=== PATIENT | female | born 1960 | race Caucasian/White ===

== ENCOUNTER → 2022-04-05 01:59 | Outpatient (CLI) | payer MEDICAID, SELFPAY ==
--- NOTE | 2022-04-05 07:30 | DI.US_ITS ---
Exam(s) US ABDOMEN EXAM: US ABDOMEN CLINICAL HISTORY: workup for transaminitis, intrahepatic bile duct dilation, hx cholecyst TECHNIQUE: Ultrasound of complete upper abdomen performed using standard protocol. COMPARISON: No exams were available for comparison FINDINGS: There is no ascites evident. LIVER: There are no hepatic lesions evident nor obvious dilatation of intrahepatic ducts. Liver is s omewhat hyperechoic indicating steatosis. GALLBLADDER/BILIARY: The gallbladder surgically absent. The common hepatic duct isslightly dilated, measuring 8mm at the level of jovanna hepatis. No obvious calculus seen within the CBD. PANCREAS: There is no evidence of pancreatic mass nor dilatation of the pancreatic duct. SPLEEN: The spleen is not enlarged and there are no intrasplenic lesions evident. KIDNEYS:Kidneys exhibit normal size with no evidence of solid mass, calculus, nor hydronephrosis. No cortical cysts evident. ABDOMINAL AORTA: There is no evidence of abdominal aortic aneurysm. IVC: Normal diameter where visualized. IMPRESSION: 1. The gallbladder surgically absent. Common hepatic duct is mildly dilated, measuring 8 millimeter s. This is possibly just related to the post cholecystectomy status but correlation with appropriate blood work recommended. 2. Hepatic steatosis. However, no discrete focal hepatic lesions identified. 3. No other significant ultrasound findings in the upper abdomen and there is no ascites evident. DATA REPOSITORY:
== END ==
PROVIDERS: PCP Physician Assistant Medical; Visit Provider Surgery
DX: K83.8 Other specified diseases of biliary tract (principal); K76.0 Fatty (change of) liver, not elsewhere classified; R74.01 Elevation of levels of liver transaminase levels; Z90.49 Acquired absence of other specified parts of digestive tract
CPT/HCPCS: 76700

== ENCOUNTER 2022-04-26 08:57 | Day surgery (SDC) | payer MEDICAID, SELFPAY ==
--- NOTE | 2022-04-26 06:48 | W.PM.ENDDOP ---
Date of service: 04/26/22 Time of Service: 11:20 Endoscopy Report DATE OF PROCEDURE: 04/26/22 PRE-OP DIAGNOSIS: Abdominal pain POST-OP DIAGNOSIS: other (gastritis, reflux and Hiatal hernia) PROCEDURE: EGD with biopsies SURGEON: Jes Schulte ANESTHESIA TYPE: General:No Airway ESTIMATED BLOOD LOSS: 3 PATHOLOGY: other (antrum, body and GE junction bx's) COMPLICATIONS: None DISPOSITION: same day INDICATIONS: Rosalie unfortunately continues with nausea, abdominal pain and fullness.? She has not lost any weight at this time.? I reviewed the ultrasound findings with her.? I recommend proceeding with an upper endoscopy and checking for H. pylori infection as well as ulcers.? If this is normal then I will refer her to gastroenterology either at [facility] or [facility].? We discussed the risks and benefits and alternatives to an upper endoscopy.? I also offered for referral to GI now and they can do the upper endoscopy as they feel it is needed.? Rosalie would like to start here with an upper endoscopy and then go from there.? Risks, benefits and complications have been reviewed. Complications include but are not limited to bleeding, pain, perforation, sore throat, aspiration, and adverse reaction to the medications.? Questions were entertained and answered to their satisfaction and they wished to proceed. No guarantees were given or implied. PREP: Miralax/Dulcolax FINDINGS: Moderate to severe gastritis Evidence of mild reflux Small Hiatal Hernia PROCEDURE DESCRIPTION: After informed consent was obtained the patient was take to the procedure room and placed in a supine position. Monitors were applied and a time out was done. The patients name, date of , procedure type, allergies to medications and metal in their body was reviewed. A bite block was placed and the patient was sedated. Once sedated and comfortable the gastroscope was advanced through the oropharynx which was grossly normal into the esophagus. The proximal and mid-esophagus were normal. In the distal esophagus there was evidence of reflux noted. The scope was advanced into the stomach and through the pylorus into the 3rd portion of the duodenum. The duodenum was noted to be normal. The scope was retracted back into the stomach. There was moderate to severe inflammation noted. Biopsies were done to rule out H. pylori. There were no ulcers. The scope was retroflexed. The cardia and fundus were noted to be normal. There was asmall hiatal hernia noted. The scope was retracted back into the esophagus and biopsies were done of the GE junction to rule out Cross's. The Z line was regular. The GE junction was at32 cm. The scope was removed and the patient was woken up and taken back to [facility] in stable condition.
--- NOTE | 2022-04-26 06:49 | PDOC.DSDIS_ITS ---
Discharge Plan Disposition Patient Disposition: HOME Condition: Good Discharge Details Reason For Visit: EGD Attending Provider: Jes Schulte Primary Care Provider: Katy Marrero Home Meds and New Rx's Prescriptions: New omeprazole 40 mg capsule,delayed release(DR/EC) 40 mg PO BID Qty: 60 0RF Continued prochlorperazine maleate [Compazine] 5 mg tablet 5 mg PO BID PRN Calcium 650mg-Vitamin D3 12.5mcg-Vitamin K 40mcg 1 tab PO DAILY celecoxib [Celebrex] 200 mg Capsule 400 mg PO DAILY Saccharomyces boulardii [Florastor] 250 mg Capsule 250 mg PO DAILY magnesium oxide 400 mg magnesium Tablet 400 mg PO BID baclofen 20 mg tablet 20 mg PO BID cyanocobalamin (vitamin B-12) 2,500 mcg tablet 2,500 mcg PO DAILY levothyroxine 50 mcg capsule 50 mcg PO DAILY lorazepam 0.5 mg tablet 0.5 mg PO BID morphine 15 mg tablet 15 mg PO Q4H PRN Rx Instructions: take 1 tablet by mouth 5 times per day cholecalciferol (vitamin D3) 50 mcg (2,000 unit) capsule 50 mcg PO DAILY ondansetron HCl 8 mg tablet 8 mg PO Q12H fentanyl 12 mcg/hr Patch 72 Hour 12 mcg topical DIRECTED lisinopril 10 mg Tablet 10 mg PO DAILY Discontinued omeprazole 20 mg Tablet,Delayed Release (Dr/Ec) 20 mg PO DAILY Discharge Instructions Instructions: Diet for Stomach Ulcers and Gastritis (ED), Gastritis (DC), GERD (Gastroesophageal Reflux Disease) (DC) Additional Instructions: Findings:Inflammation of the stomach Inflammation of esophagus medications: Please warehouse order picker a new Rx for Omeprazole 40 mg 2 x a day Follow up: 2 weeks Please call if you develop: fevers >101.5 Nausea or Vomiting Abdominal pain that is not transient Rectal bleeding that is more then a tbsp A hard abdomen and inability to pass gas DAY SURGERY UNIT POST ENDOSCOPY INSTRUCTIONS Instructions for everyone who is given Anesthesia: For your safety, please do the following for the next 24 Hours: a. Do not drive or operate dangerous equipment b. Do not drink alcohol beverages or use any recreational drugs for the first 24 hours or while taking pain medications. The medications in your body may have a reaction that can be dangerous. c. Do not make any important decisions or sign any important papers 1. Generally there are no restrictions on your activity after a day or so has gone by, but you may feel a bit fatigued for a few days. 2. After you arrive home you may have a light meal and return to a normal diet as you can tolerate it without feeling sick to your stomach. 3. After surgery, you may feel pain or discomfort. This should be only transient, but if it persists please contact your doctor. 4. If there are any questions regarding the findings of your procedure, please feel free to contact your doctor. 6. If you are unable to contact your doctor with a problem, contact the hospital at [phone]. 7. Continue all your regular medications unless directed otherwise. I understand the above instructions and have no questions. Signature of Patient or Responsible Adult Escort Date/Time Name of Responsible Adult Escort Signature of Nurse Date/Time Activity:: Activity as Tolerated Diet:: low acid diet Discharge Orders Discharge Orders: Discharge Order (Routine); Ordered 04/26/22 Ordered By: Jes Schulte
--- NOTE | 2022-04-26 07:08 | ANES.PREOP_ITS ---
General Info Date of Service Date Performed: 04/26/22 Height: 5 ft 3 in Weight: 53.751 kg Body Mass Index (BMI): 20.9 Surgical Procedure: Operation Date: 04/26/22 11:05 Proposed Procedure Side Surgeon p Gastroscopy Jes Schulte MD Meds Allergies and Home Medications Allergies Allergy/AdvReac Type Severity Reaction Status Date / Time cefaclor Allergy Severe Serum Verified 04/26/22 09:36 Sickness venlafaxine [From Effexor] Allergy Severe Seizure Verified 04/26/22 09:36 codeine Allergy Intermediate Hives Verified 04/26/22 09:36 hydrocodone Allergy Intermediate Hives Verified 04/26/22 09:36 metronidazole [From Flagyl] Allergy Intermediate Hives Verified 04/26/22 09:36 teriparatide [From Forteo] Allergy Intermediate muscle Verified 04/26/22 09:36 cramps denosumab [From Prolia] Allergy Mild Skin Rash Verified 04/26/22 09:36 doxycycline Allergy Unknown Hives Verified 04/26/22 09:36 abaloparatide [From Tymlos] AdvReac Intermediate Verified 04/26/22 09:36 ketamine AdvReac Intermediate Verified 04/26/22 09:36 Home Medication Medication Instructions Recorded Calcium 650mg-Vitamin D3 1 tab PO DAILY 05/17/20 12.5mcg-Vitamin K 40mcg Saccharomyces boulardii 250 mg 250 mg PO DAILY 05/17/20 capsule (Florastor) celecoxib 200 mg capsule (Celebrex) 400 mg PO DAILY 05/17/20 magnesium oxide 400 mg PO BID 05/17/20 omeprazole 20 mg tablet,delayed 20 mg PO DAILY 05/17/20 release baclofen 20 mg tablet 20 mg PO BID 10/25/21 cyanocobalamin (vitamin B-12) 2,500 mcg PO DAILY 10/25/21 2,500 mcg tablet levothyroxine 50 mcg capsule 50 mcg PO DAILY 10/25/21 lorazepam 0.5 mg tablet 0.5 mg PO BID 10/25/21 morphine 15 mg immediate release 15 mg PO Q4H PRN 10/25/21 tablet cholecalciferol (vitamin D3) 50 50 mcg PO DAILY 03/21/22 mcg (2,000 unit) capsule ondansetron HCl 8 mg tablet 8 mg PO Q12H 03/21/22 prochlorperazine maleate 5 mg 5 mg PO BID PRN 03/28/22 tablet (Compazine) fentanyl 12 mcg/hr transdermal 12 mcg topical DIRECTED 04/25/22 patch lisinopril 10 mg tablet 10 mg PO DAILY 04/26/22 Current Visit Medications: Current Medications Generic Name Dose Route Start Last Admin Trade Name Dickq PRN Reason Stop Dose Admin Hyoscyamine Sulfate 0.125 mg 04/26/22 06:50 Hyoscyamine 0.125 Mg Sl/Oral/Chew SL DIRECTED PRN Ringer's Solution 1,000 mls @ 80 mls/hr 04/26/22 06:00 IV 04/26/22 23:59 INFUSION [facility] IV Miscellaneous Supplies 1 each 04/26/22 06:00 Iv Access IV 04/26/22 23:59 DIRECTED [facility] Ondansetron HCl 4 mg 04/26/22 06:50 Ondansetron 4 Mg/2 Ml Vial IVP Q4H PRN PRN Nausea / Vomiting Sodium Chloride 0 ml 04/26/22 06:00 Normal Saline Flush 10 Ml Syr IV 04/26/22 23:59 PRN PRN Sodium Chloride 0 ml 04/26/22 06:00 Normal Saline 10 Ml Vial IJ 04/26/22 23:59 DIRECTED PRN Sterile Water 0 ml 04/26/22 06:00 Water,Injection,Sterile 10 Ml Vial IJ 04/26/22 23:59 DIRECTED PRN PFSH Active Problems Active Problems: Problem Status Onset Code Nausea R11.0 Abdominal pain R10.9 Trochanteric bursitis of left hip M70.62 Arthritis of left hip M16.12 Physical deconditioning R53.81 Osteoporosis M81.0 Transaminitis R74.01 Intrahepatic bile duct dilation K83.8 Hypertension I10 Medical History Medical History Cyclical vomiting syndrome Degenerative joint disease involving multiple joints Depressive disorder Diverticular disease of colon Fracture of sacrum Gastritis GERD (gastroesophageal reflux disease) H/O anorexia nervosa Hip pain History of spinal fracture thoracic 9-12 lumbar 1-2 and S2 and left hip fracture Hyperlipidemia Hypertensive disorder Hypothyroid Impairment of balance Insomnia Leukopenia Muscle weakness Polyneuropathy Thoracic back pain Unintentional weight loss Surgical History Surgical History History of appendectomy History of cholecystectomy History of hysterectomy Tobacco Smoking/Tobacco Use Status: Never Alcohol Alcohol Intake: current Alcohol intake frequency: 0-2 drinks per day Alcohol type: wine Substance Use Substance use: Never Substance use type: does not use Vital Signs and Lab Results Lab Results Blood Type / Crossmatch: No Data to Display Complete Blood Count: No Data to Display Complete Metabolic Panel: No Data to Display Liver Function Panel: No Data to Display Coagulation Panel: No Data to Display Cardiac Panel: No Data to Display Arterial Blood Gas: No Data to Display Venous Blood Gas: No Data to Display Pancreas Panel: No Data to Display Thyroid Panel: No Data to Display Infectious Disease: No Data to Display Blood Cultures: No Data to Display Toxicology Panel: No Data to Display Anesthesia Assessment and Plan Anesthesia History Personal History: PONV Family History: No Family History of Anesthesia Complications Exercise Tolerance Exercise Tolerance: Metabolic Equivalents>4 Pertinent Negatives Pertinent Negatives: No Symptoms of GERD, No Major Cardiovascular Symptoms or Complaints, No Major Pulmonary Symptoms or Complaints and No History of CVA/TIA Cardiac & Pulmonary Exam Cardiac Exam: Normal S1/S2 Heart Sounds Pulmonary Exam: Clear Bilateral Breath Sounds Implantable Cardiac Device Does patient have a Pacemaker or an ICD?: No Airway Exam Known Difficult Airway: No Mallampati Class: 1 Mouth Opening: Normal (> 3cm) Thyromental Distance: Greater than 3 cm Neck Range of Motion: Full ROM Neck Circumference: Normal Teeth Condition: Normal Dentition and Loose or Chipped ASA Classification ASA Score: ASA 2 Emergency Case?: No NPO Status NPO Status: NPO Clears >2 hours, Solids >8 hours Anesthesia Plan Resuscitation Status: Full Code Anesthesia Technique: General Anesthesia Airway Planned: Natural Airway Monitors Used: Standard Monitors
[2022-04-26 09:42] VITALS: BP 137/86; PULSE 80; RESP 15; TEMP 37.1; O2SAT 98
[2022-04-26] MEDS: Lactated Ringers 1,000 ML 80 ML IV (10:20)
[2022-04-26 10:48] VITALS: BMI 20.9
--- NOTE | 2022-04-26 11:05 | STOM_PTH ---
PATIENT: Rosalie Gamboa LOC: [facility] U#:[id number] AGE/SX: 61/F ROOM: RE04/26/[address]: Jes Schulte MD : [id number] BED: DIS: 04/26/2022 SPEC #: [id number] RECD: 04/26/22 13:01 STATUS: [facility] #: [id number] MITCH: 04/26/22 11:[address]: Jes Schulte DEPT: Surgical Specimen RECD BY: Corie Brown ENTERED: 04/26/22 13:03 SP TYPE: STOMACH OTHR DR: Katy Marrero Tissues: 1 - STOMACH BIOPSY 2 - ESOPHAGUS BIOPSY 3 - ESOPHAGUS BIOPSY Procedures: GROSS AND MICRO LEVEL 4 Comments: [id number]
[2022-04-26 11:18] VITALS: BP 113/78; PULSE 77; RESP 16; TEMP 36.7; O2SAT 98
[2022-04-26] MEDS: Ondansetron 4 MG/2 ML VIAL IVP (11:28)
[2022-04-26 11:33] VITALS: BP 127/72; PULSE 66; RESP 18; TEMP 36.4; O2SAT 96
--- NOTE | 2022-04-26 12:24 | W.ANESPOSTOP ---
Postoperative Evaluation Date, Time and Location Date Performed: 04/26/22 Time Performed: 12:24 Patient Location: Day Surgery Unit Vital Signs Most Recent Imported Vital Signs: Most Recent Vital Signs Temp Pulse Resp BP Pulse Ox 36.4 C L 66 18 127/72 96 04/26/22 11:33 04/26/22 11:33 04/26/22 11:33 04/26/22 11:33 04/26/22 11:33 Pain Score Most Recent Pain Score: Most Recent Pain Score Pain Level 8 04/26/22 09:42 Assessment Mental Status: Awake (Alert & Oriented to Patient Baseline) Airway and Respiratory Function: Patent airway with normal (patient baseline) respiratory exam Cardiovascular Function: Hemodynamically Stable Hydration Status: Adequately Hydrated Nausea & Vomiting: No Nausea or Vomiting Pain: Pt. Denies Any Pain Peripheral Nerve Block: Patient did not receive a nerve block
== END 2022-04-26 13:10 | disposition home or self-care (01) ==
PROVIDERS: PCP Physician Assistant Medical; Visit Provider Surgery
PROC: 0DJ68ZZ Inspection of Stomach, Via Natural or Artificial Opening Endoscopic (ICD-10-PCS; CPT 43235; principal; 2022-04-26 11:00)
DX: K21.9 Gastro-esophageal reflux disease without esophagitis (principal); K29.70 Gastritis, unspecified, without bleeding; K44.9 Diaphragmatic hernia without obstruction or gangrene; K22.89 Other specified disease of esophagus
CPT/HCPCS: 43239; 88305; J2405

== ENCOUNTER 2023-02-09 00:50 | Outpatient (CLI) | payer MEDICARE, MEDICAID, SELFPAY ==
--- NOTE | 2023-02-09 08:00 | DI.MRI_ITS ---
Exam(s) MR LUMBAR SPINE WO EXAM: MR LUMBAR SPINE WO CLINICAL HISTORY: LBP with peripheral neuropathy. Spinal stenosis?, RADICULOPATHY,. TECHNIQUE: Multiplanar multisequence MRI of the Lumbar spine was performed. COMPARISON: MR MR PELVIS W/WO CONTRAST from 06/08/2021 CR XR LS SPINE 2-3 VIEWS from 10/04/2021 BM BM BMD DXA AXIAL W/HIPSPINE (D) from 01/27/2022 FINDINGS: Bones: The last intervertebral disc space is designated the L5/S1 level for the numbering purpose of this examination. Stable compression fracture of T12. Stable occluded is of the superior endplates of L2 and L3. No acute fractures. Alignment is satisfactory. The marrow signal characteristics are unremarkable. Cord: The conus tip ends at the T12 L1 level. It is of normal size and signal intensity. T12-L1: No disc herniations or bulges are present. No central spinal canal or neural foraminal stenos is. L1-2: No disc herniations or bulges are present. No central spinal canal or neural foraminal stenosis . L2-3: No disc herniations or bulges are present. No central spinal canal or neural foraminal stenosis . L3-4: Small endplate osteophytes. Mild facet degenerative changes and ligamentous hypertrophy. No d isc herniations or bulges are present. No central spinal canal or neural foraminal stenosis. L4-5: Minimal disc bulging. Mild facet degenerative changes and ligamentous hypertrophy. Mild bilat eral neural foraminal narrowing. No central canal stenosis. L5-S1: No disc herniations or bulges are present. Mild facet degenerative changes. No central spina l canal or neural foraminal stenosis. The visualized SI joints and sacrum are well maintained. Soft tissues: The paraspinal soft tissues are unremarkable. IMPRESSION: No evidence disc herniation. No evidence of central spinal canal stenosis. Facet degenerative garcia es cause mild bilateral neural foraminal narrowing at L4-5.. Stable compression fractures. DATA REPOSITORY:
== END 2023-02-09 01:10 ==
PROVIDERS: PCP Physician Assistant Medical; Visit Provider Preventive Medicine Occupational Medicine
DX: S22.080D Wedge compression fracture of T11-T12 vertebra, subsequent encounter for fracture with routine healing (principal); M48.061 Spinal stenosis, lumbar region without neurogenic claudication; X58.XXXA Exposure to other specified factors, initial encounter
CPT/HCPCS: 72148

== ENCOUNTER → 2023-08-01 08:39 | Outpatient (BNVA) | payer MEDICARE, MEDICAID, SELFPAY | PROVIDERS: PCP Physician Assistant Medical; Referring Provider Physician Assistant Medical; Visit Provider Surgery | DX: R10.9 Unspecified abdominal pain (principal); R19.7 Diarrhea, unspecified; R63.4 Abnormal weight loss | CPT/HCPCS: 99214 ==

== ENCOUNTER 2023-08-09 11:26 | Day surgery (SDC) | payer OTHER, SELFPAY ==
--- NOTE | 2023-08-08 19:56 | PDOC.DSDIS_ITS ---
Date of service: 08/09/23 Time of Service: 14:02 Discharge Plan Disposition Patient Disposition: Home Condition: Good Discharge Details Reason For Visit: Colonoscopy Attending Provider: Ricki Richard Primary Care Provider: Katy Marrero Home Meds and New Rx's Prescriptions: Continued Probiotic 3 billion cell capsule 3,000 mmu cells PO DAILY Rx Instructions: administer with a meal Calcium 650mg-Vitamin D3 12.5mcg-Vitamin K 40mcg 1 tab PO DAILY magnesium oxide 400 mg magnesium Tablet 400 mg PO BID dicyclomine 20 mg tablet 20 mg PO BID psyllium husk [Fiber (psyllium husk)] 0.4 gram capsule 0.4 g PO BID Qty: 90 0RF Patient Comments: Hasn't started wasn't able to get from the pharmacy. cyanocobalamin (vitamin B-12) 2,500 mcg tablet 2,500 mcg PO DAILY levothyroxine 50 mcg capsule 50 mcg PO DAILY lorazepam 0.5 mg tablet 0.5 mg PO BID ondansetron HCl 8 mg tablet 8 mg PO Q12H naloxone [Narcan] 4 mg/actuation spray,non-aerosol 4 mg intranasal Q2M PRN Patient Comments: doesn't need anymore but it has it Rx Instructions: spray 1 dose into ONE nostril; alternate nostrils w each dose until help arrives zinc gluconate 50 mg tablet 50 mg PO DAILY teriparatide [Forteo] 20 mcg/dose (600mcg/2.4mL) pen injector 20 mcg subcut DAILY Patient Comments: Will start tomorrow baclofen 20 mg tablet Patient Comments: TAKE ONE TABLET BY MOUTH TWICE A DAY FOR 10 DAYS Discontinued polyethylene glycol 3350 17 gram/dose powder 238 g PO ONCE Qty: 238 0RF Rx Instructions: take per colonoscopy instructions bisacodyl [Dulcolax (bisacodyl)] 5 mg tablet,delayed release (DR/EC) 5 mg PO ONCE Qty: 4 0RF Rx Instructions: take per colonoscopy instructions Discharge Instructions Instructions: Diverticulosis (GEN), Colorectal Polyps (GEN), Diverticulosis Diet (GEN) Additional Instructions: Laquita, we were able to complete your colonoscopy without any difficulty today. I did find 1 polyp. It was medium in size. I removed it completely. You also have some diverticulosis. Finally, with regards to the symptoms that you have been experiencing, I did perform multiple biopsies all along the length of the colon, although, to the naked eye, I did not see anything else out of the ordinary. There were no signs of Crohn's disease or ulcerative colitis, but the biopsies will evaluate for microscopic colitis as well. Once I have the results of the biopsies and the polyp report, I will be in touch with recommendations. In the meantime, I would continue with increased psyllium. Hopefully, this will help with some of your symptoms, and certainly will be helpful with regards to the diverticulosis that was observed today. 1. If tolerated, consume a soft, low fiber diet for 1-2 days. [address] Do not drive, drink alcohol, operate machinery, make critical decisions, or do activities that require coordination or balance for 24 hours. 3. Because air was put into your colon during the procedure, expelling air from your rectum (passing gas or farting) is normal. 4. You may not have a bowel movement for 1-3 days because of the colonoscopy prep. This is normal. 5. Go directly to the emergency room if you notice any of the following: Develop chills (warm to touch), or if you have a thermometer and your temperature is above 101 Difficulty breathing or difficultly swallowing Persistent vomiting Severe abdominal pain, other than gas cramps Severe chest pain Black, tarry stools Any bleeding ? exceeding one tablespoon 6. Call your physician if the site where your intravenous was started becomes r ed, swollen, painful, and warm to touch. 7. Your physician has reviewed your pre-procedure medications. Please continue to take those medications as previously ordered. You will be given specific info rmation/education regarding any changes to your medications before leaving. Activity:: Activity as Tolerated Diet:: As Tolerated Discharge Orders Discharge Orders: Discharge Order (Routine); Ordered 08/08/23 Ordered By: Ricki Richard DS: Diagnosis Discharge Diagnosis (1) Screen for colon cancer: Status: Acute Asessment and Plan: Follow-up on polypectomy results
--- NOTE | 2023-08-08 19:58 | COLE_ITS ---
Date of service: 08/09/23 Time of Service: 14:05 Colonoscopy Report Date of procedure: 08/09/23 Pre-op diagnosis general: Change in stool character with unanticipated weight loss Post-op diagnosis procedure note: other (Diverticulosis, colon polyp) Procedure: COlonoscopy Surgeon: Ricki Richard Anesthesia Type: General:No Airway Estimated blood loss (mL): 5 Pathology: other (Random colon biopsies, 0.5 cm polyp at 75 cm from the anus) Complications: None Disposition: same day Indications: Rosalie is 62 years old. She has been experiencing abdominal pain, with some change in the character of her stools with associated unanticipated weight loss over the past several months. Prep: Miralax/Dulcolax Procedure Start Time: 13:28 Procedure End Time: 13:53 Retraction Time: 15 Findings: Extensive sigmoid diverticulosis, 0.5 centimeter polyp at 75 cm from the anus Procedure Description: After the induction of monitored anesthetic care, and with the patient in left lateral decubitus position, I began by performing an external anorectal exam.? Perineum and skin were normal, as was the anal verge.? There was evidence of external hemorrhoids.? Next, I performed a digital rectal exam.? I did appreciate any abnormal findings.? Next, I advanced a colonoscope into the rectal vault.? I performed retroflexion.? This was normal.? Using insufflation, I then advanced the colonoscope beyond the rectal folds and into the sigmoid colon before advancing towards the cecum.? There was extensive sigmoid diverticulosis. Great care was taken to maintain the true lumen. Diverticula extended all along the length of the left colon as well.? The scope was noted to be in the cecum by identification of the ileocecal valve and appendiceal orifice.? I then began withdrawing the colonoscope using repeated irrigation as necessary for full evaluation of the colonic mucosa. Around 75 cm from the anal verge I identified a 0.5 cm polyp. ?It appeared flat in character. ?I was able to remove this with a cold forceps. ?I examined the site, and there was minimal bleeding. ?Once this was completed, I continued to withdraw the scope and examine the remainder of the colonic mucosa.?Once the scope was withdrawn to the level of the rectum, great care was taken to examine portions of the rectal folds.? Based on the patient's history, I also perform random biopsies all along the length of the large intestine using cold forceps to look for microscopic colitis. To the naked eye, there was no evidence of gross inflammation. I did not see any signs of Crohn's disease or ulcerative colitis. Finally, the scope was withdrawn and the patient was brought to the same-day surgery recovery unit as the anesthetic wore off. ?The findings and instructions were shared with the patient prior to discharge. [place] Bowel Prep [place] Bowel Prep Right Colon: 3 Left Colon: 3 Transverse Colon: 3 Total Score: 9
[2023-08-09 12:09] VITALS: BP 106/90; PULSE 77; RESP 16; TEMP 36.8; O2SAT 100
[2023-08-09] MEDS: Lactated Ringers 1,000 ML 80 ML IV (12:34)
--- NOTE | 2023-08-09 13:08 | W.ANESPRE ---
General Info Date of Service Date Performed: 08/09/23 Height: 5 ft 3 in Weight: 44 kg Body Mass Index (BMI): 17.2 Surgical Procedure: Operation Date: 08/09/23 13:20 Proposed Procedure Side Surgeon adela Richard MD Meds Allergies and Home Medications Allergies Allergy/AdvReac Type Severity Reaction Status Date / Time cefaclor Allergy Severe Serum Verified 08/09/23 12:03 Sickness venlafaxine [From Effexor] Allergy Severe Seizure Verified 08/09/23 12:03 codeine Allergy Intermediate Hives Verified 08/09/23 12:03 hydrocodone Allergy Intermediate Hives Verified 08/09/23 12:03 metronidazole [From Flagyl] Allergy Intermediate Hives Verified 08/09/23 12:03 teriparatide [From Forteo] Allergy Intermediate muscle Verified 08/09/23 12:03 cramps denosumab [From Prolia] Allergy Mild Skin Rash Verified 08/09/23 12:03 doxycycline Allergy Unknown Hives Verified 08/09/23 12:03 abaloparatide [From Tymlos] AdvReac Intermediate Verified 08/09/23 12:03 ketamine AdvReac Intermediate Verified 08/09/23 12:03 Home Medication Medication Instructions Recorded Calcium 650mg-Vitamin D3 1 tab PO DAILY 05/17/20 12.5mcg-Vitamin K 40mcg magnesium oxide 400 mg PO BID 05/17/20 cyanocobalamin (vitamin B-12) 2,500 mcg PO DAILY 10/25/21 2,500 mcg tablet levothyroxine 50 mcg capsule 50 mcg PO DAILY 10/25/21 lorazepam 0.5 mg tablet 0.5 mg PO BID 10/25/21 ondansetron HCl 8 mg tablet 8 mg PO Q12H 03/21/22 lactobacillus combination no.4 3 3,000 mmu cells PO DAILY 09/22/22 billion cell capsule (Probiotic) naloxone 4 mg/actuation nasal 4 mg intranasal Q2M PRN 07/17/23 spray (Narcan) teriparatide 20 mcg/dose (600 20 mcg subcut DAILY 07/17/23 mcg/2.4 mL) subcutaneous pen injector (Forteo) zinc gluconate 50 mg tablet 50 mg PO DAILY 07/17/23 dicyclomine 20 mg tablet 20 mg PO BID 08/01/23 psyllium husk 0.4 gram capsule 0.4 g PO BID #90 caps 08/01/23 (Fiber (psyllium husk)) baclofen 20 mg tablet mg 08/09/23 Current Visit Medications: Current Medications Generic Name Dose Route Start Last Admin Trade Name Freq PRN Reason Stop Dose Admin Hyoscyamine Sulfate 0.125 mg 08/08/23 19:59 Hyoscyamine 0.125 Mg Sl/Oral/Chew SL 09/07/23 19:58 DIRECTED PRN Ringer's Solution 1,000 mls @ 80 mls/hr 08/09/23 06:00 08/09/23 12:34 IV 08/09/23 23:59 80 mls/hr INFUSION ALE Administration IV Miscellaneous Supplies 1 each 08/09/23 06:00 Iv Access IV 08/09/23 23:59 DIRECTED ALE Ondansetron HCl 4 mg 08/08/23 19:59 Ondansetron 4 Mg/2 Ml Vial IVP 09/07/23 19:58 Q4H PRN PRN Nausea / Vomiting Palonosetron 0.075 mg 08/09/23 12:00 Palonosetron 0.25 Mg/5 Ml Vial IVP 08/09/23 16:00 PREOP ALE Sodium Chloride 0 ml 08/09/23 06:00 Normal Saline Flush 10 Ml Syr IV 08/09/23 23:59 PRN PRN Sodium Chloride 0 ml 08/09/23 06:00 Normal Saline 10 Ml Vial IJ 08/09/23 23:59 DIRECTED PRN Sterile Water 0 ml 08/09/23 06:00 Water,Injection,Sterile 10 Ml Vial IJ 08/09/23 23:59 DIRECTED PRN PFSH Active Problems Active Problems: Problem Status Onset Code Peripheral neuralgia M79.2 Chronic depression F32.A 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 Sacral insufficiency fracture with delayed healing M84.48XG Lumbar radiculopathy M54.16 Nausea and vomiting R11.2 Hypertension I10 Intrahepatic bile duct dilation K83.8 Transaminitis R74.01 Osteoporosis M81.0 Physical deconditioning R53.81 Arthritis of left hip M16.12 Trochanteric bursitis of left hip M70.62 Abdominal pain R10.9 Nausea R11.0 Medical History Medical History Vitamin B12 deficiency Steatosis of liver Pain of pelvic girdle Numbness Chronic pain Bone pain Acetabulum fracture, left History of spinal fracture thoracic 9-12 lumbar 1-2 and S2 and left hip fracture H/O anorexia nervosa Fracture of sacrum Unintentional weight loss Impairment of balance Muscle weakness Thoracic back pain Hip pain Degenerative joint disease involving multiple joints Diverticular disease of colon Cyclical vomiting syndrome Gastritis GERD (gastroesophageal reflux disease) Hypertensive disorder Polyneuropathy Pt. states she has no feeling from her hips to her feet Insomnia Depressive disorder Leukopenia Hyperlipidemia Hypothyroid Medical History Comments:: Hx of cyclical vomiting Surgical History Surgical History H/O colonoscopy (~03/26/19) History of esophagogastroduodenoscopy (EGD) (~04/2022) [facility] 04/07/22 Normal History of cholecystectomy (~08/06/05) History of appendectomy (~08/06/05) History of hysterectomy Tobacco Smoking/Tobacco Use Status: Never Alcohol Alcohol Intake: current Alcohol intake frequency: 0-2 drinks per day Alcohol type: wine Substance Use Substance use: Never Substance use type: does not use Vital Signs and Lab Results Vital Signs Most Recent Vital Signs in EMR: Most Recent Vital Signs Temp Pulse Resp BP Pulse Ox 36.8 C 77 16 106/90 100 08/09/23 12:09 08/09/23 12:09 08/09/23 12:09 08/09/23 12:09 08/09/23 12:09 Lab Results Blood Type / Crossmatch: No Data to Display Complete Blood Count: No Data to Display Complete Metabolic Panel: No Data to Display Liver Function Panel: No Data to Display Coagulation Panel: No Data to Display Cardiac Panel: No Data to Display Arterial Blood Gas: No Data to Display Venous Blood Gas: No Data to Display Pancreas Panel: No Data to Display Thyroid Panel: No Data to Display Infectious Disease: No Data to Display Blood Cultures: No Data to Display Toxicology Panel: No Data to Display Anesthesia Assessment and Plan Anesthesia History Personal History: PONV Family History: No Family History of Anesthesia Complications Exercise Tolerance Exercise Tolerance: Metabolic Equivalents<4 Pertinent Negatives Pertinent Negatives: No Symptoms of GERD, No Major Cardiovascular Symptoms or Complaints, No Major Pulmonary Symptoms or Complaints and No History of CVA/TIA Cardiac & Pulmonary Exam Cardiac Exam: Normal S1/S2 Heart Sounds Pulmonary Exam: Clear Bilateral Breath Sounds Implantable Cardiac Device Does patient have a Pacemaker or an ICD?: No Airway Exam Known Difficult Airway: No Mallampati Class: 1 Mouth Opening: Normal (> 3cm) Thyromental Distance: Greater than 3 cm Neck Range of Motion: Full ROM Neck Circumference: Normal Teeth Condition: Normal Dentition and Loose or Chipped (incisors have microfractures) ASA Classification ASA Score: ASA 3 Emergency Case?: No NPO Status NPO Status: NPO Clears >2 hours, Solids >8 hours Anesthesia Plan Resuscitation Status: Full Code Anesthesia Technique: General Anesthesia Airway Planned: Natural Airway Monitors Used: Standard Monitors
[2023-08-09 13:11] VITALS: BMI 17.2
--- NOTE | 2023-08-09 13:43 | BOWEL_PTH ---
PATIENT: Rosalie Gamboa LOC: [facility] U#:[id number] AGE/SX: 62/F ROOM: RE08/09/[address]: Ricki Richard MD : 1960 BED: DIS: 08/09/2023 SPEC #: [id number] RECD: 08/09/23 18:17 STATUS: JEISON RE #: [id number] MITCH: 08/09/23 13:[address]: Ricki Richard DEPT: Surgical Specimen RECD BY: Corie Brown ENTERED: 08/09/23 18:18 SP TYPE: Bowel OTHR DR: Katy Marrero Tissues: 1 - BIOPSY BOWEL 2 - BIOPSY BOWEL Procedures: GROSS AND MICRO LEVEL 4 Comments: [id number]
[2023-08-09 14:00] VITALS: BP 109/77; PULSE 62; RESP 16; TEMP 36.5; O2SAT 97
[2023-08-09 14:30] VITALS: BP 104/72; PULSE 57; RESP 17; TEMP 36.6; O2SAT 96
--- NOTE | 2023-08-09 14:57 | W.ANESPOSTOP ---
Postoperative Evaluation Date, Time and Location Date Performed: 08/09/23 Time Performed: 14:47 Patient Location: Day Surgery Unit Vital Signs Most Recent Imported Vital Signs: Most Recent Vital Signs Temp Pulse Resp BP Pulse Ox 36.6 C 57 L 17 104/72 96 08/09/23 14:30 08/09/23 14:30 08/09/23 14:30 08/09/23 14:30 08/09/23 14:30 Assessment Mental Status: Awake (Alert & Oriented to Patient Baseline) Airway and Respiratory Function: Patent airway with normal (patient baseline) respiratory exam Cardiovascular Function: Hemodynamically Stable Hydration Status: Adequately Hydrated Nausea & Vomiting: No Nausea or Vomiting Pain: Pt. Denies Any Pain Peripheral Nerve Block: Patient did not receive a nerve block Postoperative Comments:: Reviewed prophylactic use of palonosetron (Aloxi) for N/V and to remember to ask for it for any future procedures.
== END 2023-08-09 15:38 | disposition home or self-care (01) ==
LOC: SUR 11:26
PROVIDERS: PCP Physician Assistant Medical; Visit Provider Surgery
PROC: 0DJD8ZZ Inspection of Lower Intestinal Tract, Via Natural or Artificial Opening Endoscopic (ICD-10-PCS; CPT 45378; principal; 2023-08-09 13:15)
DX: Z12.11 Encounter for screening for malignant neoplasm of colon (principal); D12.4 Benign neoplasm of descending colon; K57.30 Diverticulosis of large intestine without perforation or abscess without bleeding; R10.9 Unspecified abdominal pain; I10 Essential (primary) hypertension; R63.4 Abnormal weight loss
CPT/HCPCS: 45380; 88305; J1100; J2001; J2469; J2704

== ENCOUNTER → 2023-09-26 00:09 | Outpatient (CLI) | payer OTHER, SELFPAY ==
--- NOTE | 2023-09-26 | DI.CT_ITS ---
Exam(s) CT PELVIC WO EXAM: CT PELVIC WO CLINICAL HISTORY: ? PELVIC INSUFFICIENCY FRACTURES,PELVIC PAIN, R10.2. TECHNIQUE: Imaging Protocol: Axial computed tomography images with coronal and sagittal reformatted images were created and reviewed CONTRAST MATERIAL: Intravenous: none Oral: None COMPARISON: CT,PT NM PET SCAN:EYES TO THIGHS-INI from 04/22/2021 NM NM BONE SCAN WHOLE BODY GRP from 09/26/2023 FINDING: PELVIS: OSSEOUS: There is an acute or subacute compression fracture of L5 vertebral body, this corresponding to focus of increased activity on today's nuclear bone scan. No listhesis at this level. No pars de fects. No sacral fracture identified. No hip fractures identified.No significant osseous lesions ev ident.There are healed fractures of the right superior and inferior pubic rami. These do not exhibit increased activity on today's nuclear bone scan. ANTERIOR ABDOMINAL WALL/GI:No evidence of significant anterior abdominal wall nor inguinal hernia in the pelvis evident.No obvious bowel obstruction. No evidence of appendicitis.Sigmoid diverticulosis without evidence of acute diverticulitis.No free fluid in the pelvis. LYMPH NODES: There is no intrapelvic nor inguinal adenopathy. URINARY BLADDER: No calculi nor obvious masses evident REPRODUCTIVE: Uterus is surgically absent. There are no abnormal adnexal masses and no free fluid.. IMPRESSION: 1. There is no acute or subacute compression fracture of L5 vertebral body with approximately 20 perc ent height loss and this accounts for the increased focal uptake at this level on today's nuclear bon e scan. There is no obvious sacral fracture. 2. There are healed fractures of the right superior and inferior pubic rami. These healed fractures do not exhibit abnormal uptake on today's nuclear bone scan. 3. Sigmoid diverticulosis without evidence of acute diverticulitis. RADIATION DOSE DELIVERED: 231.54mGy.cm Total DLP DATA REPOSITORY: All CT scans at this facility are submitted to the National Radiology Data Registry (NRDR) Dose Index Registry (DIR) with the [employer] ([employer]). RADIATION OPTIMIZATION: All CT scans at this facility use at least one of these dose optimization te chniques: automated exposure control; mA and/or kV adjustment per patient size (includes targeted exa ms where dose is matched to clinical indication); or iterative reconstruction.
--- NOTE | 2023-09-26 | DI.NM_ITS ---
Exam(s) NM BONE SCAN WHOLE BODY GRP EXAM: NM BONE SCAN WHOLE BODY GRP CLINICAL HISTORY: CONCERN FOR NEW INSUFFICIENCY FRACTURES,,OSTEOPOROSIS,M81.8. TECHNIQUE: Injected Dose: 25 mCi Tc-99m MDP Delayed Images: 2-3 hours. COMPARISON: BM BM BMD DXA AXIAL W/HIPSPINE (D) from 01/27/2022 MR MR LUMBAR SPINE WO from 02/09/[address] PELVIC WO from 09/26/2023 FINDINGS: There is significant focal uptake at multiple adjacent ribs in the left ribcage involving what appear to be the left 6, 7th, 8th, and 9th ribs. There is also a weaker focus of increased uptake in the l eft 4th rib. Higher up in the cervical spine there is a small focus of increased uptake at the mid right aspect th e cervical spine which is most probably related to facet arthropathy. In the thoracic spine there are multiple foci of increased uptake which appear to be in the T6, T7, T 10, T11, and T12 vertebral bodies. Consistent with compression fractures. There is also uptake evid ent in the L5 vertebra consistent with compression fracture, as seen on today's CT scan of the pelvis . No abnormal uptake in the skull and shoulder girdles nor in the sternum nor elsewhere in the pelvis a nd hips and long bones. IMPRESSION: 1. Multiple foci of uptake in the left ribcage consistent with multiple adjacent rib fractures, as de scribed above, most probably posttraumatic. 2. Multiple compression fractures in the thoracic and lumbar spine as described above. DATA REPOSITORY:
== END ==
PROVIDERS: PCP Physician Assistant Medical; Visit Provider Internal Medicine Endocrinology, Diabetes & Metabolism
DX: K57.30 Diverticulosis of large intestine without perforation or abscess without bleeding (principal); M81.0 Age-related osteoporosis without current pathological fracture
CPT/HCPCS: 78306; 72192